=== PATIENT | male | born 1995 | race Caucasian/White ===

== ENCOUNTER 2017-02-21 11:03 | Emergency (ER) | payer MEDICAID ==
[~2017-02-21] VITALS: Ht 170.2 cm; Wt 63.5 kg
[2017-02-21 11:27] VITALS: BP 122/59
--- NOTE | 2017-02-21 11:35 | NUR ---
Patient ambulated to bed 4. RN evaluating patient at bedside.
--- NOTE | 2017-02-21 11:40 | NUR ---
21/M TO ED FOR WORK CLEARANCE FROM ABD PAIN ON TUESDAY. NO MEDICAL COMPLAINTS TODAY. LUNGS CLEAR BILAT. HR EVEN AND REGULAR. AAOX4. VSS. NO SIGNS OF DISTRESS.
[2017-02-21 12:12] VITALS: BP 122/59
--- NOTE | 2017-02-21 12:13 | NUR ---
Patient discharged with v/s stable. Written and verbal after care instructions given and explained. Patient verbalized understanding. Ambulatory with steady gait. All questions addressed prior to discharge. Advised to follow up with PMD.
== END 2017-02-21 12:13 | disposition home or self-care (01) ==
LOC: MED 11:03
DX: Z02.89 Encounter for other administrative examinations (principal); R10.9 Unspecified abdominal pain; R19.7 Diarrhea, unspecified; R03.0 Elevated blood-pressure reading, without diagnosis of hypertension
CPT/HCPCS: 99281